=== PATIENT | female | born 1980 | race Caucasian/White ===

== ENCOUNTER 2018-09-07 17:27 | Emergency (ER) | payer OTHER ==
[2018-09-07] MEDS: KETOROLAC 30 MG INJ IM (19:57)
[2018-09-07 19:58] LABS: ADD UMIC YES; UR ASCORBIC ACID NEGATIVE (NEGATIVE); UR BACTERIA FEW /HPF (NONE SEEN); UR BILIRUBIN (Dip) NEGATIVE (NEGATIVE); UR BLOOD (Dip) 2+ mg/dL (NEGATIVE); UR CLARITY SLIGHTLY CLOUDY (CLEAR); UR COLOR YELLOW (YELLOW); UR GLUCOSE (Dip) NEGATIVE (NEGATIVE); UR KETONES (Dip) NEGATIVE (NEGATIVE); UR LEUKOCYTE ESTERASE (Dip) TRACE Leu/ul (NEGATIVE); UR NITRITE (Dip) NEGATIVE (NEGATIVE); UR RBC 1 /HPF (0-5); UR SPECIFIC GRAVITY (Dip) 1.013 (1.003-1.030); UR SQUAMOUS EPITHELIAL CELL FEW /HPF (FEW); UR TOTAL PROTEIN (Dip) NEGATIVE (NEGATIVE); UR UROBILINOGEN (Dip) NEGATIVE (NEGATIVE); UR WBC 3 /HPF (0-5)
[2018-09-07] MEDS: ONDANSETRON 4 MG INJ IM (20:26)
[2018-09-07] MEDS ORDERED: ONDANSETRON (ODT) 4 MG TAB ODT ×2 (20:30→20:32)
[2018-09-07] MEDS: ONDANSETRON 4 MG TAB PO (20:32)
== END 2018-09-07 21:04 | disposition home or self-care (01) ==
LOC: FTE 21:04
DX: N39.0 Urinary tract infection, site not specified (principal); K52.9 Noninfective gastroenteritis and colitis, unspecified
CPT/HCPCS: 76856; 81001; 81025; 96372; 99285-25

== ENCOUNTER 2018-10-15 19:29 | Emergency (ER) | payer OTHER | END 2018-10-15 21:21 | disposition home or self-care (01) | LOC: FTE 21:21 | DX: J02.9 Acute pharyngitis, unspecified (principal) | CPT/HCPCS: 87880; 99283 ==

== ENCOUNTER 2019-01-02 17:33 | Emergency (ER) | payer OTHER ==
[2019-01-02] MEDS: ACETAMINOPHEN 325 MG TAB PO (20:15)
== END 2019-01-02 21:45 | disposition home or self-care (01) ==
LOC: FTE 17:33
DX: O20.0 Threatened abortion (principal); Z3A.01 Less than 8 weeks gestation of pregnancy
CPT/HCPCS: 36415; 76801; 81001; 84702; 85025; 86900; 86901; 87086; 99284-25